=== PATIENT | female | born 1980 | race Caucasian/White ===

== ENCOUNTER 2018-06-11 07:18 | Inpatient (IN) | payer OTHER ==
[2018-06-11] VITALS (29 sets, daily range): BP systolic 105–131; BP diastolic 53–91
[~2018-06-11] VITALS: Ht 165.1 cm; Wt 96.6 kg
[2018-06-11] MEDS ORDERED: PRENTAB9 PO (07:29)
[2018-06-11 08:13] LABS: HEMATOCRIT 37.5 % (36.0-47.0); MEAN CORPUSCULAR HEMOGLOBIN 32.3 pg (27.0-33.0); MEAN CORPUSCULAR HGB CONC 34.7 g/dl (32.0-36.5); MEAN CORPUSCULAR VOLUME 93.3 fl (80.0-96.0); PLATELET COUNT, AUTOMATED 268 10^3/uL (150-450); RED BLOOD COUNT 4.02 10^6/uL (4.00-5.40); WHITE BLOOD COUNT 12.1 10^3/uL (4.0-10.0)
[2018-06-11] MEDS ORDERED: PROMETHAZINE INJ 25 MG/ML VIAL (J2550) As Ordered ONE (08:14)
[2018-06-11] MEDS ORDERED: BUTORPHANOL 2 MG/ML INJ (J0595) As Ordered ONE (08:15)
[2018-06-11] MEDS ORDERED: PROMETHAZINE INJ 25 MG/ML VIAL (J2550) IV ONE (08:30)
[2018-06-11] MEDS ORDERED: BUTORPHANOL 2 MG/ML INJ (J0595) IV ONE (08:30)
[2018-06-11] MEDS ORDERED: FENTANYL 2MCG/ML ROPIVACAINE 0.2% IN 0.9% NACL 100ML IVBAG As Ordered ONE (08:37)
[2018-06-11] MEDS: LR 1,000 ML IV SCH ×2 (09:00→09:59)
[2018-06-11] MEDS: PRENATAL VITAMINS CHEWABLE TABLET PO SCH (09:00)
[2018-06-11] MEDS ORDERED: NALOXONE INJ 0.4 MG/1 ML VIAL (J2310) IV PRN (09:18)
[2018-06-11] MEDS ORDERED: EPIDURAL/PCA KEYS XX PRN (09:18)
[2018-06-11] MEDS ORDERED: REFRIGERATOR IV KEYS XX PRN (09:18)
[2018-06-11] MEDS ORDERED: ePHEDrine SULFATE 25 MG/5 ML(5MG/ML) SYRINGE IV PRN (09:18)
[2018-06-11] MEDS ORDERED: LACTATED RINGER'S 1000 ML IV PRN (09:18)
[2018-06-11] MEDS ORDERED: FENTANYL/ROPIVACAINE/NACL BAG 100 ML EPIDURAL SCH (09:18)
[2018-06-11] MEDS ORDERED: EPIDURAL COMMENT XX SCH (09:18)
[2018-06-11] MEDS ORDERED: ONDANSETRON 4MG/2ML VIAL (J2405) IV PRN (09:18)
[2018-06-11] MEDS ORDERED: diphenhydrAMINE INJ 50MG/ML VIAL (J1200) IV PRN (09:18)
--- NOTE | 2018-06-11 12:03 | NUR ---
1200 assessment post epidural arom 7.5 cm ot -2 station meconium light category 1 strip safe to proceed
[2018-06-11] MEDS ORDERED: OXYTOCIN 30 UNITS IN 0.9% NaCl 500ML IV BAG (J2590) As Ordered ONE (12:28)
[2018-06-11 13:43] LABS: CORD GAS ABE A -4.6; CORD GAS HCO3 A 22.8 MEQ/L; CORD GAS O2 SAT A 40.8 %; CORD GAS O2 SAT V 80.7 %; CORD GAS PCO2 A 51.3 mmHg; CORD GAS PCO2 V 35.8 mmHg; CORD GAS PH A 7.266 UNITS; CORD GAS PH V 7.407 UNITS; CORD GAS PO2 A 21.9 mmHg; CORD GAS PO2 V 37.8 mmHg; CORD GAS SBC A 19.4 MEQ/L; CORD GAS SBC V 22.4 MEQ/L; CORD GAS TCO2 A 24.4 MEQ/L; CORD GAS TCO2 V 23.1 MEQ/L
[2018-06-11] MEDS ORDERED: OXYTOCIN DRIP 30 UNITS in APPROPRIATE DILUENT 1 EA IV SCH (14:29)
[2018-06-11] MEDS ORDERED: ANUSOL HC CREAM 30GM TOP PRN (14:30)
[2018-06-11] MEDS ORDERED: MOM 30ML SUSPENSION UDC PO PRN (14:30)
[2018-06-11] MEDS ORDERED: RHOGAM 300 MCG (1500 IU) INJ (J2790) IM SCH (14:30)
[2018-06-11] MEDS ORDERED: DOCUSATE SODIUM 100 MG CAP PO PRN (14:30)
[2018-06-11] MEDS ORDERED: METHYLERGONOVINE MALEATE 0.2 MG TAB PO PRN (14:30)
[2018-06-11] MEDS ORDERED: MEASLES,MUMPS,RUBELLA VACCINE INJ (MMR-II) (90707) SC SCH (14:30)
[2018-06-11] MEDS ORDERED: OXYTOCIN INJ 10 UNITS/ML VIAL (J2590) IV ONE (14:45)
[2018-06-11] MEDS ORDERED: OXYTOCIN INJ 10 UNITS/ML VIAL (J2590) As Ordered ONE (14:55)
[2018-06-11] MEDS: IBUPROFEN 800 MG TAB PO PRN (16:49)
[2018-06-11] MEDS: DIBUCAINE 1% OINTMENT 30GM TOP PRN (16:50)
[2018-06-11] MEDS: ACETAMINOPHEN 500 MG TAB PO PRN (18:57)
[2018-06-12] MEDS: IBUPROFEN 800 MG TAB PO PRN ×2 (04:00→14:38)
[2018-06-12 06:00] VITALS: BP 129/73
[2018-06-12 07:24] LABS: HEMATOCRIT 32.9 % (36.0-47.0); HEMOGLOBIN 11.3 g/dl (12.0-15.5); MEAN CORPUSCULAR HEMOGLOBIN 32.4 pg (27.0-33.0); MEAN CORPUSCULAR HGB CONC 34.3 g/dl (32.0-36.5); MEAN CORPUSCULAR VOLUME 94.3 fl (80.0-96.0); PLATELET COUNT, AUTOMATED 246 10^3/uL (150-450); RED BLOOD COUNT 3.49 10^6/uL (4.00-5.40); WHITE BLOOD COUNT 12.4 10^3/uL (4.0-10.0)
[2018-06-12] MEDS: PRENATAL VITAMINS CHEWABLE TABLET PO SCH (08:09)
[2018-06-12] MEDS: DIBUCAINE 1% OINTMENT 30GM TOP PRN (11:08)
--- NOTE | 2018-06-12 13:18 | HPE ---
DATE OF ADMISSION: 06/11/2018 HISTORY: This is a 37-year-old, 2, para 1, at 40 and 4 with contractions, 4 cm dilated, GBS negative, last menstrual period (LMP) 08/31/2017, expected date of confinement (EDC) 06/07/2018 PAST HISTORY: August 2014, 41 weeks, spontaneous vaginal delivery, female, 6 pounds 7 ounces. RISK FACTORS: She is advanced maternal age (AMA), declined testing. LABORATORY DATA: O positive. HIV negative. Hepatitis negative. RPR negative. Rubella immune. Varicella immune. Pap normal. Urine was negative. Gonorrhea and chlamydia negative. 1-hour glucose was 165. Her 3-hour GTT - 1-hour was 157, 2-hour 146 and 3-hour was 103. ON EXAMINATION: Appears distressed. Symphysis fundus height is 40, vertex occiput anterior 9OA), 4 cm, -3 staging, bulging membranes, in active labor. Blood pressure 128/66, respirations are 20, pulse 75 and temperature 98.3. The rest of the examination is unremarkable. She is normocephalic, atraumatic. Neck full range of motion. Pupils equal and reactive to light. Distal pulses symmetric. No evidence of deep vein thrombosis (DVT), pulmonary embolus (PE) or superficial phlebitis. Chest is clear bilaterally at bases. No wheezes or rhonchi. Abdomen: Soft. Uterus appropriate symphysis fundus height. Four quadrant bowel sounds are noted. No rashes, lesions or pruritus. No arthralgia or myalgia. No complaint of joint pain. No cough, wheeze, shortness of breath or dyspnea on exertion. No bleeding. Neuro complete. No frequency, nausea, vomiting, diarrhea or constipation. No diabetic issues. Three hour GTT was normal. DENTAL OFFICE COORDINATOR: No abnormal Pap smears. No sexually transmitted diseases (STDs). PAST MEDICAL AND SURGICAL HISTORY: Unremarkable. FAMILY HISTORY: Noncontributory. SOCIAL HISTORY: She does not smoke, drink or abuse drugs. to a soldier. No domestic violence. Good support systems. Consented for vaginal delivery. She was counseled regarding delivery of the baby through the vagina with the possibility of use of forceps or vacuum if needed for maternal or indications. Forceps, vacuum or other devices that can assist with vaginal delivery when normal pushing efforts cannot achieve delivery on their own or when delivery is needed in emergency for the baby's well-being. Medications to be used or required to induce or augment labor in order to achieve vaginal delivery. Episiotomy may be required to help baby to deliver vaginally. She may also require repair of any lacerations or tears of the vagina or vulva caused by delivery and in some cases emergencies can arise which require emergency section. She understands if this occurs the provider will discuss the need for section before we proceed with surgery. may be needed because it is safer for the mom and baby than continuing labor and only performed when clinically indicated. Risks of vaginal delivery include, but are not limited to bleeding, infection, injury to the vagina or pelvic structures, injury to baby, damage to the uterus, reaction of anesthesia, uterine rupture, remote risk of hysterectomy or blood transfusion life-threatening situations, medications that are used be it Pitocin may increase the risk of section and/or with hysterectomy hemorrhage, heart rate abnormalities, need for emergency section only at the maternal or indications. The patient expressed understanding of the situation and is asking for epidural. All questions were answered.
[2018-06-12] MEDS ORDERED: MAPA500T2 PO (14:23)
[2018-06-12] MEDS ORDERED: DIBU1OIN TOP (14:23)
[2018-06-12] MEDS ORDERED: MOM30SS PO (14:23)
[2018-06-12] MEDS ORDERED: ANUS2.5C2 TOP (14:23)
[2018-06-12] MEDS ORDERED: COLA100C5 PO (14:23)
[2018-06-12] MEDS ORDERED: IBUP-1114 PO (14:23)
[2018-06-12] MEDS: ACETAMINOPHEN 500 MG TAB PO PRN (14:38)
--- NOTE | 2018-06-12 16:18 | DN ---
DATE: 06/11/2018 This is a 37-year-old 2, para 1 admitted at 40 and 4 with contractions. GBS negative, epidural in place, delivered a live female infant weighing 8 pounds 7 ounces 3820 grams. of 9 and 9 at 1 and 5 minutes respectively. Arterial and venous pH were performed. Placenta delivered spontaneously thereafter. Three-vessel cord membranes and tissues intact. She sustained a first-degree tear which was oversewn in the usual fashion. The rest the examination, the sphincter was intact and lateral mosqueda, the anterior and power operator mosqueda were intact. The uterus contracted well down with Pitocin. The mid the first-degree tear was oversewn in the usual fashion with 2-0 Vicryl and a [id number]. Arterial pH was 7.26, base excess -4.6, venous pH 7.40, base excess -2.0. In summary we have a term gestation, active labor, spontaneous delivery live female infant.
--- NOTE | 2018-06-12 17:15 | IPN ---
DATE: 06/12/2018 A 37-year-old 2, now para 2 admitted at 40 and four weeks of gestation with contractions, group B Streptococcus (GBS) negative, delivered a live female infant, epidural in place, 8 pounds, 7 ounces, 3820 grams scores of 9 and 9 at one and five minutes respectively. Arterial pH 7.26, base excess -4.6, venous pH 7.40, base excess -2.0. On her first day, we discussed phlebitis, cystitis, mastitis, endometritis and cellulitis, diet, exercise, pain management, perineal, breast and wound care. The patient is planning on , using alternative methods of control until her six-week checkup. Her vital signs, today her blood pressure 122/59, respirations 18, pulse 95, temperature is 98.6. Her admitting hemoglobin was 13.0, hematocrit 37.5, and platelets were 268. In summary, we have a term gestation, delivered a live female , planning on discharge and six-week checkup. Medications were dispensed at discharge.
== END 2018-06-12 16:15 | disposition home or self-care (01) | DRG 807 ==
LOC: M LDO 07:18 → M LDI 07:41 → M OBS 16:22
PROVIDERS: ADMIT Obstetrics & Gynecology; ATTEND Obstetrics & Gynecology
PROC: 10E0XZZ Delivery of Products of Conception, External Approach (ICD-10-PCS; principal; 2018-06-11)
PROC: 0HQ9XZZ Repair Perineum Skin, External Approach (ICD-10-PCS; 2018-06-11)
DX: O70.0 First degree perineal laceration during delivery (principal); Z37.0 Single live birth; Z3A.40 40 weeks gestation of pregnancy; O48.0 Post-term pregnancy; O09.523 Supervision of elderly multigravida, third trimester